=== PATIENT | female | born 1970 | race Caucasian/White ===

== ENCOUNTER 2016-08-21 16:16 | Emergency (ER) | payer MEDICAID ==
[2016-08-21] MEDS ORDERED: Sodium Chloride 0.9% 10 ML Syringe FLUSH PRN (16:22)
[2016-08-21] MEDS ORDERED: Ondansetron 4 MG/2 ML SDV IVPUSH ONE (16:23)
[2016-08-21] MEDS ORDERED: Ketorolac 30 MG/ML SDV IVPUSH ONE (16:23)
[2016-08-21] MEDS ORDERED: HYDROmorphone 1 MG/ML Syringe IVPUSH ONE (16:23)
[2016-08-21] MEDS ORDERED: Sodium Chloride 0.9% 1,000 ML IV ONE (16:23)
[2016-08-21 16:49] VITALS: BP 172/96
[2016-08-21 17:03] LABS: CHLORIDE,CL 104 mmol/L (98-107); SODIUM,NA 140 mmol/L (136-145)
[2016-08-21] MEDS ORDERED: Tamsulosin 0.4 MG Cap.ER PO ONE (18:35)
[2016-08-21] MEDS ORDERED: Take Home: Acetaminophen/HYDROcodone 325-10 MG, 5 Tab Pack PO ONE (18:36)
[2016-08-21] MEDS ORDERED: Take Home: Sulfamethoxazole/Trimethoprim 800-160 MG Tab, 2 Tab Pack PO ONE (18:37)
--- NOTE | 2016-08-22 10:36 | ER ---
Date of Service: 08/21/2016 SUBJECTIVE: Shahana presents to the emergency room with complaints of left-sided flank and abdominal pain. The patient states that she does have a history of previous kidney stone and states the discomfort is similar to what she has experienced in the past. She states that she was at rest at the onset of the symptoms. She had just gotten off her sofa to get ready for work. She had not exerted herself and had not been doing any lifting or anything that would exacerbate her back injury. Again, the patient states she has not been experiencing any fever or chills. Denies any nausea, vomiting, or diarrhea. PAST MEDICAL HISTORY: 1. History of atrial fibrillation. 2. Kidney stones. 3. Recurrent UTI. 4. Ovarian cysts. 5. Anxiety. 6. Hypertension. MEDICATIONS: Xanax and metoprolol. ALLERGIES: Codeine. REVIEW OF SYSTEMS: General: No fever or chills. HEENT: No sore throat, rhinorrhea, or congestion. Respiratory: No shortness of breath. Cardiac: Denies any substernal chest pain. No jaw, arm, neck, or back pain. GI: No nausea, vomiting, or diarrhea. No melena, hematochezia, or hematemesis. Again, she does have abdominal discomfort and flank pain. Neurologic: No fainting, blackouts, or lightheadedness. PHYSICAL EXAMINATION: General: This is a 46-year-old female patient, who is in no acute distress. Vital Signs: Blood pressure initially was 172/96, pulse rate is 97, temperature is 36.2, respiratory rate is 18, and O2 saturations 99% on room air. Skin: Warm, pink, and dry. HEENT: Head is normocephalic, atraumatic. Mouth, oral mucosa is somewhat dry. No erythema or exudate noted in the hypopharynx. Neck: Supple, without masses. There is no lymphadenopathy. Lungs: Clear to auscultation. Heart: Regular rate and rhythm. Abdomen: Soft and nontender. There is no hepatosplenomegaly noted. There are no masses noted. Extremities: Without edema. She has no CVA tenderness. Neurologic: She is alert and oriented. Answers all questions appropriately. Her speech is fluent. Her gait is within normal limits. LABORATORY DATA: CBC was obtained, was all noted to be within normal limits. Comprehensive metabolic panel was obtained and was all noted to be within normal limits with the exception of an elevated nonfasting blood glucose of 150. C- reactive protein was less than 0.2. Urinalysis revealed a specific gravity 1.020, she did have dark yellow turbid specimen, protein was 100, negative for glucose and ketones. She did have moderate occult blood, negative nitrites, and a trace of leukocyte esterase. CT scan of the patient's abdomen and pelvis was obtained, which did reveal a 4- mm stone between approximately midway between the iliac arteries and the UVJ. There was moderate hydronephrosis associated with this stone. EMERGENCY ROOM COURSE: IV access was established. She was given 30 mg of Toradol IV and 1 mg of Dilaudid IV. She was also given 4 mg of Zofran IV and a liter of normal saline. She reported significant improvement in her discomfort and was relatively pain free at the time of discharge. ASSESSMENT: A 4-mm stone in the distal ureter. PLAN: The patient will be discharged at this point. Strain her urine. She was started on Flomax 0.4 mg p.o. once daily. I also did start her on oral [place] 10/325 with instructions to take 1 to 2 tablets every 4 to 6 hours as needed for pain. Also, she should take ibuprofen 600 mg every 6 hours and drink plenty of fluids. All questions were answered. MWK: 08/21/2016 19:35:58 MODL: 08/22/2016 00:39:55 /[id number]
== END 2016-08-21 18:55 | disposition home or self-care (01) ==
LOC: VM.ED 16:16
DX: N13.2 Hydronephrosis with renal and ureteral calculous obstruction (principal); I48.91 Unspecified atrial fibrillation; I10 Essential (primary) hypertension; F41.9 Anxiety disorder, unspecified; Z88.5 Allergy status to narcotic agent
CPT/HCPCS: 36415; 74176; 80053; 81001; 85025; 86140; 96361; 96374; 96375; 99284; A9270; J1170; J1885; J2405; J7030

== ENCOUNTER 2017-08-07 18:23 | Emergency (ER) | payer MEDICAID ==
[2017-08-07 18:29] VITALS: BP 164/95
[2017-08-07] MEDS: Acetaminophen/HYDROcodone 325-10 MG Tab PO ONE (18:37)
[2017-08-07] MEDS: Ketorolac 30 MG/ML SDV IM ONE (18:37)
[2017-08-07] MEDS: Cyclobenzaprine 10 MG Tab PO ONE (18:37)
--- NOTE | 2017-08-07 19:39 | EDM.PDOC ---
ED HPI GENERAL MEDICAL PROBLEM - General Chief Complaint: Upper Extremity Injury/Pain Stated Complaint: right arm pain Time Seen by Provider: 08/07/17 18:25 Source of Information: Reports: Patient, Family History Limitations: Reports: No Limitations - History of Present Illness INITIAL COMMENTS - FREE TEXT/NARRATIVE: Patient presents to the emergency room this evening after having fallen on her right wrist. She has severe pain and limited range of motion movement with additional swelling. She did this just prior to arrival. She also reports falling on her left wrist but that does not hurt as much there is an abrasion noted to that. She has no other complaints. She did not hit her head, or have loss of consciousness. Onset: Today, Sudden Location: Reports: Upper Extremity, Right Quality: Reports: Sharp Severity: Moderate Worsens with: Reports: Movement Associated Symptoms: Reports: No Other Symptoms Right Wrist Pain Score (Numeric/FACES): 3 - Related Data Allergies Allergy/AdvReac Type Severity Reaction Status Date / Time codeine Allergy Vomiting Verified 08/07/17 18:32 Home Meds: Home Meds . 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: Reports: Polycystic Ovaries Psychiatric History: Reports: Anxiety Oncologic (Cancer) History: Reports: Cervix Social & Family History - Tobacco Use Smoking Status *Q: Current Every Day Smoker Years of Tobacco use: 30 Packs/Tins Daily: 0.5 Used Tobacco, but Quit: No Second Hand Smoke Exposure: Yes - Alcohol Use Days Per Week of Alcohol Use: 1 Number of Drinks Per Day: 4 Total Drinks Per Week: 4 - Recreational Drug Use Recreational Drug Use: No Recreational Drug Type: Reports: Marijuana/Hashish Recreational Drug Use Frequency: Socially Review of Systems - Review of Systems Review Of Systems: See Below Constitutional: Reports: No Symptoms Eyes: Reports: No Symptoms Ears: Reports: No Symptoms Nose: Reports: No Symptoms Mouth/Throat: Reports: No Symptoms Respiratory: Reports: No Symptoms Cardiovascular: Reports: No Symptoms GI/Abdominal: Reports: No Symptoms Genitourinary: Reports: No Symptoms Musculoskeletal: Reports: Arm Pain (right forearm) Skin: Reports: Wound (abrasion to left wrist) Neurological: Reports: No Symptoms Psychiatric: Reports: No Symptoms ED EXAM, GENERAL - Physical Exam Exam: See Below Exam Limited By: No Limitations General Appearance: Alert, WD/WN, Moderate Distress Eye Exam: Bilateral Eye: EOMI, Normal Inspection, PERRL Ears: Normal TMs Respiratory/Chest: No Respiratory Distress, Lungs Clear, Normal Breath Sounds, No Accessory Muscle Use, Chest Non-Tender Cardiovascular: Normal Peripheral Pulses, Regular Rate, Rhythm, No Edema, No Gallop, No JVD, No Murmur, No Rub GI/Abdominal: Normal Bowel Sounds, Soft, Non-Tender, No Organomegaly, No Distention, No Abnormal Bruit, No Mass Extremities: No Pedal Edema, Normal Capillary Refill, Arm Pain, Limited Range of Motion Neurological: Alert, Oriented, CN II-XII Intact, Normal Cognition, Normal Gait, Normal Reflexes, No Motor/Sensory Deficits Psychiatric: Normal Affect, Normal Mood Skin Exam: Wound/Incision (left wrist abrasion) Course - Vital Signs Last Recorded V/S: Last Vital Signs Temp 36.1 C 08/07/17 18:23 Pulse 74 08/07/17 18:23 Resp 18 08/07/17 18:23 BP 164/95 H 08/07/17 18:23 Pulse Ox 100 08/07/17 18:23 - Orders/Labs/Meds Orders: Active Orders 24 hr Category Date Time Status Forearm 2V Rt [CR] Stat Exams 08/07/17 18:25 Taken Wrist Comp Min 3V Rt [CR] Stat Exams 08/07/17 18:25 Ordered Meds: Medications Discontinued Medications Generic Name Dose Route Start Last Admin Trade Name Freq PRN Reason Stop Dose Admin Hydrocodone Bitart/Acetaminophen 1 tab 08/07/17 18:31 08/07/17 18:37 [place] 325-10 Mg PO 08/07/17 18:32 1 tab ONETIME ONE Administration Cyclobenzaprine HCl 10 mg 08/07/17 18:31 08/07/17 18:37 Flexeril PO 08/07/17 18:32 10 mg ONETIME ONE Administration Ketorolac Tromethamine 30 mg 08/07/17 18:25 08/07/17 18:37 Toradol IM 08/07/17 18:26 30 mg ONETIME ONE Administration - Radiology Interpretation Free Text/Narrative:: Non displaced Colles fracture on examination of images. Await radiology confirmation. Distal radius fracture confirmed on imaging. Volar forearm splint applied prior to discharge Departure - Departure Time of Disposition: 20:01 Disposition: Home, Self-Care 01 Condition: Good Clinical Impression: Colles' fracture of right radius - Discharge Information Instructions: Colles Fracture, Wrist Fracture Treated With Immobilization, Easy -to-Read Referrals: PCP,None [Primary Care Provider] - Additional Instructions: You need to schedule a follow up appointment with either [facility] or [facility]. They will do a follow up x-ray and may refer you to orthopedic for any surgical options you may have. Take the pain medications as prescribed. You can also take ibuprofen or aleve with your pain medication. Keep your arm elevated on pillows to help reduce the swelling. Stay well hydrated to avoid constipation related to the pain medication use. Keep your splint dry. Cover with a bag or leave outside the shower. Follow up at the clinic of your choice as symptoms warrant. If you have any concerns or questions you can call us at any time. - Problem List & Annotations (1) Colles' fracture of right radius SNOMED Code(s): 290238635 Code(s): S52.531A - COLLES' FRACTURE OF RIGHT RADIUS, INIT FOR CLOS FX Status: Acute Priority: Medium Current Visit: Yes Qualifiers: Encounter type: initial encounter Fracture type: closed Qualified Code(s) : S52.531A - Colles' fracture of right radius, initial encounter for closed fracture - Problem List Review Problem List Initiated/Reviewed/Updated: Yes - My Orders Last 24 Hours: My Active Orders 08/07/17 18:25 Forearm 2V Rt [CR] Stat Wrist Comp Min 3V Rt [CR] Stat - Assessment/Plan Last 24 Hours: My Active Orders 08/07/17 18:25 Forearm 2V Rt [CR] Stat Wrist Comp Min 3V Rt [CR] Stat Assessment:: right colles fracture of the radius. Non displaced. Plan: You need to schedule a follow up appointment with either [facility] or [facility]. They will do a follow up x-ray and may refer you to orthopedic for any surgical options you may have. Take the pain medications as prescribed. You can also take ibuprofen or aleve with your pain medication. Keep your arm elevated on pillows to help reduce the swelling. Stay well hydrated to avoid constipation related to the pain medication use. Keep your splint dry. Cover with a bag or leave outside the shower. Follow up at the clinic of your choice as symptoms warrant. If you have any concerns or questions you can call us at any time.
[2017-08-07] MEDS: Take Home: Acetaminophen/HYDROcodone 325-10 MG, 5 Tab Pack PO ONE (19:50)
== END 2017-08-07 19:54 | disposition home or self-care (01) ==
LOC: VM.ED 18:23
DX: S52.531A Colles' fracture of right radius, initial encounter for closed fracture (principal); I48.91 Unspecified atrial fibrillation; I10 Essential (primary) hypertension; Z88.5 Allergy status to narcotic agent; F17.210 Nicotine dependence, cigarettes, uncomplicated; W19.XXXA Unspecified fall, initial encounter; Z87.442 Personal history of urinary calculi
CPT/HCPCS: 29125; 73090; 96372; 99283; A9270; J1885

== ENCOUNTER 2017-12-24 18:41 | Emergency (ER) | payer MEDICAID ==
[2017-12-24] MEDS ORDERED: Sodium Chloride 0.9% 10 ML Syringe FLUSH PRN (18:47)
--- NOTE | 2017-12-24 18:59 | EDM.PDOC ---
<Justin Carrion W - Last Filed: 12/24/17 19:08> ED HPI GENERAL MEDICAL PROBLEM - General Chief Complaint: Chest Pain Time Seen by Provider: 12/24/17 18:45 Source of Information: Reports: Patient History Limitations: Reports: No Limitations - History of Present Illness INITIAL COMMENTS - FREE TEXT/NARRATIVE: Pt. presents to ER with complaints of chest pain, respirophasic in nature, fatigue, global weakness, and low back pain. She states that the symptoms started last and have gradually have gotten worse. Complains of generalized myalgias as well. No nausea, vomiting, or diarrhea. States that she feels like she has a hard time taking a deep breath. Pt. states that she has a history of a-fib and hypertension for which she is prescribed metoprolol. She states that she has not taken this for approx. [address] Madera in [place], [place] for PCP but does not have a local provider. She states that she hasn't had any symptoms of tachycardia in approx. 1 month. She states that when the symptoms come on, she usually stays at home. Onset Date: 12/19/17 Duration: Constant, Getting Worse Location: Reports: Chest, Back, Generalized Quality: Reports: Ache, Burning, Sharp Associated Symptoms: Reports: Malaise, Weakness. Denies: Diaphoresis, Fever/ Chills, Nausea/Vomiting - Related Data Allergies Allergy/AdvReac Type Severity Reaction Status Date / Time codeine Allergy Vomiting Verified 12/24/17 18:54 Home Meds: Home Meds . 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 Denies: Fever , Chills HEENT: Reports: No Symptoms Respiratory: Reports: Shortness of Breath, Pleuritic Chest Pain Cardiovascular: Reports: Chest Pain Endocrine: Reports: Fatigue GI/Abdominal: Reports: No Symptoms : Reports: No Symptoms Musculoskeletal: Reports: Back Pain Skin: Reports: No Symptoms Neurological: Reports: No Symptoms Psychiatric: Reports: No Symptoms Hematologic/Lymphatic: Reports: No Symptoms Immunologic: Reports: No Symptoms Course - Vital Signs Last Recorded V/S: Last Vital Signs Temp 36.5 C 12/24/17 18:45 Pulse 74 12/24/17 18:45 Resp 28 H 12/24/17 18:45 BP 173/87 H 12/24/17 18:45 Pulse Ox 100 12/24/17 18:45 - Orders/Labs/Meds Orders: Active Orders 24 hr Category Date Time Status EKG Documentation Completion [RC] STAT Care 12/24/17 18:47 Active Chest 2V [CR] Stat Exams 12/24/17 18:47 Taken CULTURE BLOOD [BC] Stat Lab 12/24/17 19:20 Received CULTURE BLOOD [BC] Stat Lab 12/24/17 19:32 Received Blood Culture x2 Reflex Set [OM.PC] Stat Oth 12/24/17 18:47 Ordered Peripheral IV Insertion Adult [OM.PC] Routine Oth 12/24/17 18:47 Ordered Labs: Laboratory Tests 12/24/17 12/24/17 12/24/17 Range/Units 19:00 19:20 19:20 WBC 7.1 (4.0-10.0) x10^3/uL RBC 4.79 (4.00-5.50) x10^6/uL Hgb 15.6 (12.0-16.0) g/dL Hct 44.5 (33.0-47.0) % MCV 92.9 (78.0-93.0) fL MCH 32.6 H (26.0-32.0) pg MCHC 35.1 (32.0-36.0) g/dL RDW Coeff of Mateus 12.4 (10.0-15.0) % Plt Count 200 (130-400) x10^3/uL Neut % (Auto) 53.3 (50.0-80.0) % Lymph % (Auto) 37.9 (25.0-50.0) % [place] % (Auto) 7.6 (2.0-11.0) % Eos % (Auto) 0.6 (0.0-4.0) % Baso % (Auto) 0.6 (0.2-1.2) % PT 9.4 L (9.6-11.4) SEC INR 0.9 L (2.0-3.5) D-Dimer, Quantitative < 0.19 (<=0.58) mg/LFEU Sodium (136-145) mmol/L Potassium (3.5-5.1) mmol/L Chloride (98-107) mmol/L Carbon Dioxide (21-32) mmol/L Anion Gap (10-20) mmol/L BUN (7-18) mg/dL Creatinine (0.55-1.02) mg/dL Est Cr Clr Drug Dosing mL/min Estimated GFR (MDRD) Glucose (74-106) mg/dL Lactic Acid (0.4-2.0) mmol/L Calcium (8.5-10.1) mg/dL Corrected Calcium (8.5-10.1) mg/dL Phosphorus (2.6-4.7) mg/dL Magnesium (1.8-2.4) mg/dL Total Bilirubin (0.2-1.0) mg/dL AST (15-37) U/L ALT (14-59) U/L Alkaline Phosphatase (46-116) U/L POC Troponin I (0.00-0.08) ng/mL C-Reactive Protein (<=0.9) mg/dL NT-Pro-B Natriuret Pep (<=125) pg/mL Total Protein (6.4-8.2) g/dL Albumin (3.4-5.0) g/dL Globulin Albumin/Globulin Ratio Urine Color Yellow (YELLOW) Urine Appearance Turbid H (CLEAR) Urine pH 8.0 (5.0-8.0) Ur Specific [place] 1.015 Urine Protein Negative (NEGATIVE) mg/dL Urine Glucose (UA) Negative (NEGATIVE) mg/dL Urine Ketones Negative (NEGATIVE) mg/dL Urine Occult Blood Negative (NEGATIVE) Urine Nitrite Negative (NEGATIVE) Urine Bilirubin Negative (NEGATIVE) Urine Urobilinogen 0.2 (0.2) EU/dL Ur Leukocyte Esterase Trace H (NEGATIVE) Urine RBC 0-5 (NOT SEEN) /HPF Urine WBC 0-5 (NOT SEEN) /HPF Ur Squamous Epith Cells Few H (NEGATIVE) /HPF Amorphous Sediment Many Urine Bacteria Few H (NEGATIVE) /HPF Urine Mucus Few H (NEGATIVE) /LPF 08/14/18 08/14/18 08/14/18 Range/Units 19:20 19:20 19:42 WBC (4.0-10.0) x10^3/uL RBC (4.00-5.50) x10^6/uL Hgb (12.0-16.0) g/dL Hct (33.0-47.0) % MCV (78.0-93.0) fL MCH (26.0-32.0) pg MCHC (32.0-36.0) g/dL RDW Coeff of [place] (10.0-15.0) % Plt Count (130-400) x10^3/uL Neut % (Auto) (50.0-80.0) % Lymph % (Auto) (25.0-50.0) % [place] % (Auto) (2.0-11.0) % Eos % (Auto) (0.0-4.0) % Baso % (Auto) (0.2-1.2) % PT (9.6-11.4) SEC INR (2.0-3.5) D-Dimer, Quantitative (<=0.58) mg/LFEU Sodium 139 (136-145) mmol/L Potassium 3.6 (3.5-5.1) mmol/L Chloride 101 (98-107) mmol/L Carbon Dioxide 29 (21-32) mmol/L Anion Gap 12.6 (10-20) mmol/L BUN 19 H (7-18) mg/dL Creatinine 1.1 H (0.55-1.02) mg/dL Est Cr Clr Drug Dosing 68.37 mL/min Estimated GFR (MDRD) 53 Glucose 75 (74-106) mg/dL Lactic Acid 1.7 (0.4-2.0) mmol/L Calcium 10.0 (8.5-10.1) mg/dL Corrected Calcium 9.76 (8.5-10.1) mg/dL Phosphorus 3.4 (2.6-4.7) mg/dL Magnesium 2.3 (1.8-2.4) mg/dL Total Bilirubin 0.3 (0.2-1.0) mg/dL AST 21 (15-37) U/L ALT 44 (14-59) U/L Alkaline Phosphatase 100 (46-116) U/L POC Troponin I 0.00 (0.00-0.08) ng/mL C-Reactive Protein < 0.2 (<=0.9) mg/dL NT-Pro-B Natriuret Pep 72 (<=125) pg/mL Total Protein 7.8 (6.4-8.2) g/dL Albumin 4.3 (3.4-5.0) g/dL Globulin 3.5 Albumin/Globulin Ratio 1.23 Urine Color (YELLOW) Urine Appearance (CLEAR) Urine pH (5.0-8.0) Ur Specific [place] Urine Protein (NEGATIVE) mg/dL Urine Glucose (UA) (NEGATIVE) mg/dL Urine Ketones (NEGATIVE) mg/dL Urine Occult Blood (NEGATIVE) Urine Nitrite (NEGATIVE) Urine Bilirubin (NEGATIVE) Urine Urobilinogen (0.2) EU/dL Ur Leukocyte Esterase (NEGATIVE) Urine RBC (NOT SEEN) /HPF Urine WBC (NOT SEEN) /HPF Ur Squamous Epith Cells (NEGATIVE) /HPF Amorphous Sediment Urine Bacteria (NEGATIVE) /HPF Urine Mucus (NEGATIVE) /LPF Meds: Medications Discontinued Medications Generic Name Dose Route Start Last Admin Trade Name Freq PRN Reason Stop Dose Admin Aspirin 324 mg 12/24/17 19:06 12/24/17 19:30 Aspirin PO 12/24/17 19:07 324 mg ONETIME ONE Administration Sodium Chloride 1,000 mls @ 999 mls/hr 12/24/17 19:30 12/24/17 19:25 Normal Saline IV 999 mls/hr ASDIRECTED NOREEN Administration Sodium Chloride 1,000 mls @ 999 mls/hr 12/24/17 20:30 12/24/17 20:30 Normal Saline IV 999 mls/hr ASDIRECTED NOREEN Administration Methylprednisolone Sodium Succinate 125 mg 12/24/17 20:29 12/24/17 20:37 Solu-Medrol IVPUSH 12/24/17 20:30 125 mg ONETIME ONE Administration Sodium Chloride 10 ml 12/24/17 18:47 Saline Flush FLUSH ASDIRECTED PRN Keep Vein Open Trimethoprim/Sulfamethoxazole 1 tab 12/24/17 20:11 12/24/17 20:18 Septra Ds PO 12/24/17 20:12 1 tab ONETIME ONE Administration Departure - Departure Disposition: Home, Self-Care 01 Clinical Impression: Pyelonephritis - Discharge Information Instructions: Pyelonephritis, Adult, [id number], Chronic Obstructive Pulmonary Disease, [id number] Referrals: Stacy Kimble MD [Primary Care Provider] - Forms: ED Department Discharge Additional Instructions: Stay well hydrated. You also should stop smoking. Take the bactrim twice daily for 14 days. Do not stop taking them early if you feel better. Complete the course. Only stop if you feel your throat is tightening and it is hard to breath, you begin having a rash, or if you start having severe headaches, muscles aches. Some abdominal discomfort is expected with antibiotics, as is diarrhea. Make sure to either buy some probiotics or eat yogurt for the next month to keep your regular abdominal bacteria healthy. Discuss with Dr. Kimble your shortness of breath. Due to your history of smoking, you may have COPD. To determine this you would need to have a test called a pulmonary function test(PFT). This determines how well your lungs are working. You have mucus, bacteria, blood and leukocytes in your urinalysis today. I am diagnosing you with pyelonephritis which is a kidney infection and inflammation of the lining of your kidneys. Only bathe and wash the vaginal area with neutral soaps and avoid soaps with strong fragrances, douching, always wipe front to back. If you have any questions or additional concerns, please call the hospital. <Ramon Mata - Last Filed: 12/24/17 22:28> ED HPI GENERAL MEDICAL PROBLEM Middle Chest Pain Score (Numeric/FACES): 8 ED EXAM, GENERAL - Physical Exam Exam: See Below Exam Limited By: No Limitations General Appearance: Alert, WD/WN, No Apparent Distress Eye Exam: Bilateral Eye: EOMI, PERRL Ears: Normal TMs Nose: Normal Inspection, Normal Mucosa, No Blood Throat/Mouth: Normal Inspection, Normal Lips, Normal Teeth, Normal Gums, Normal Oropharynx, Normal Voice, No Airway Compromise Head: Atraumatic, Normocephalic Neck: Normal Inspection, Supple, Non-Tender, Full Range of Motion Respiratory/Chest: No Respiratory Distress, Lungs Clear, Normal Breath Sounds, No Accessory Muscle Use, Chest Non-Tender Cardiovascular: Normal Peripheral Pulses, Regular Rate, Rhythm, No Edema, No Gallop, No JVD, No Murmur, No Rub Peripheral Pulses: 2+: Radial (L), Radial (R), Posterior Tibial (L), Posterior Tibial (R), Dorsalis Pedis (L), Dorsalis Pedis (R) GI/Abdominal: Normal Bowel Sounds, Soft, Non-Tender, No Organomegaly, No Distention, No Abnormal Bruit, No Mass Back Exam: CVA Tenderness (L), CVA Tenderness (R) Extremities: Normal Inspection, Normal Range of Motion, Non-Tender, Normal Capillary Refill, No Pedal Edema Neurological: Alert, Oriented, CN II-XII Intact, Normal Cognition, Normal Gait, Normal Reflexes, No Motor/Sensory Deficits Psychiatric: Normal Affect, Normal Mood Skin Exam: Warm, Dry, Intact, Normal Color, No Rash Lymphatic: No Adenopathy Departure - Departure Time of Disposition: 21:25 Condition: Good - Discharge Information *PRESCRIPTION DRUG MONITORING PROGRAM REVIEWED*: Not Applicable *COPY OF PRESCRIPTION DRUG MONITORING REPORT IN PATIENT BATSHEVA: Not Applicable - Problem List & Annotations (1) Pyelonephritis SNOMED Code(s): 50552103 Code(s): N12 - TUBULO-INTERSTITIAL NEPHRITIS, NOT SPCF ACUTE OR CHRONIC Status: Acute Priority: Medium - Problem List Review Problem List Initiated/Reviewed/Updated: Yes - Assessment/Plan Assessment:: pyelonephritis Plan: Stay well hydrated. You also should stop smoking. Take the bactrim twice daily for 14 days. Do not stop taking them early if you feel better. Complete the course. Only stop if you feel your throat is tightening and it is hard to breath, you begin having a rash, or if you start having severe headaches, muscles aches. Some abdominal discomfort is expected with antibiotics, as is diarrhea. Make sure to either buy some probiotics or eat yogurt for the next month to keep your regular abdominal bacteria healthy. Discuss with Dr. Kimble your shortness of breath. Due to your history of smoking, you may have COPD. To determine this you would need to have a test called a pulmonary function test(PFT). This determines how well your lungs are working. You have mucus, bacteria, blood and leukocytes in your urinalysis today. I am diagnosing you with pyelonephritis which is a kidney infection and inflammation of the lining of your kidneys. Only bathe and wash the vaginal area with neutral soaps and avoid soaps with strong fragrances, douching, always wipe front to back. If you have any questions or additional concerns, please call the hospital.
[2017-12-24] MEDS ORDERED: Aspirin 81 MG Tab.Chew PO ONE (19:06)
[2017-12-24 19:10] VITALS: BP 173/87
[2017-12-24] MEDS ORDERED: Sodium Chloride 0.9% 1,000 ML IV SCH ×2 (19:30→20:30)
[2017-12-24 20:07] LABS: CHLORIDE,CL 101 mmol/L (98-107); SODIUM,NA 139 mmol/L (136-145)
[2017-12-24 20:09] LABS: ANION GAP 12.6 mmol/L (10-20)
[2017-12-24] MEDS ORDERED: Sulfamethoxazole/Trimethoprim 800-160 MG Tab PO ONE (20:11)
[2017-12-24] MEDS ORDERED: methylPREDNISolone Sodium Succinate 125 MG/2 ML SDV IVPUSH ONE (20:29)
== END 2017-12-24 21:25 | disposition home or self-care (01) ==
LOC: VM.ED 18:41
DX: N12 Tubulo-interstitial nephritis, not specified as acute or chronic (principal); I10 Essential (primary) hypertension; F41.9 Anxiety disorder, unspecified; Z88.5 Allergy status to narcotic agent
CPT/HCPCS: 36415; 71046; 80053; 81001; 83605; 83735; 83880; 84100; 84484; 85025; 85379; 85610; 86140; 87040; 87804; 93005; 96361; 96374; 99285; A9270; J2930; J7030

== ENCOUNTER 2017-12-26 11:10 | Emergency (ER) | payer MEDICAID ==
[2017-12-26 11:17] VITALS: BP 163/94
--- NOTE | 2017-12-26 11:27 | EDM.PDOC ---
ED HPI GENERAL MEDICAL PROBLEM - General Chief Complaint: Allergic Reaction Stated Complaint: Facial swelling Time Seen by Provider: 12/26/17 11:11 Source of Information: Reports: Patient, Old Records, RN, RN Notes Reviewed History Limitations: Reports: No Limitations - History of Present Illness INITIAL COMMENTS - FREE TEXT/NARRATIVE: Patient presents to the ED at [facility] complaining of facial swelling after she started taking Bactrim DS for Pyelo she was diagnosed with 2 days ago. No breathing or airway problems. No skin rash or hives. Denies any chest pain. No throat swelling. No N/V/D. Onset: Today - Related Data Allergies Allergy/AdvReac Type Severity Reaction Status Date / Time codeine Allergy Vomiting Verified 12/26/17 11:19 Home Meds: Home Meds Ciprofloxacin HCl [Cipro] 500 mg PO BID 5 Days #10 tablet 12/26/17 [Rx] methylPREDNISolone [Medrol] 4 mg PO ASDIRECTED #1 dosepk 12/26/17 [Rx] Past Medical History Cardiovascular History: Reports: Afib, Hypertension Genitourinary History: Reports: Renal Calculus, UTI, Recurrent ADOBE BALL MIXER History: Reports: Polycystic Ovaries Other ADOBE BALL MIXER History: cervical leep. cervical freeze, cervical conization Psychiatric History: Reports: Anxiety Oncologic (Cancer) History: Reports: Cervix - Past Surgical History GI Surgical History: Reports: Hernia Repair/Other Musculoskeletal Surgical History: Reports: Other (See Below) Other Musculoskeletal Surgeries/Procedures:: elbow surgery ED ROS ALLERGIC REACTION - Review of Systems Review Of Systems: See Below Constitutional: Denies: Fever, Chills, Weakness HEENT: Reports: No Symptoms, Other (bilateral facial swelling just under both eyes; skin slightly erythematous consistent with drug reaction). Denies: Throat Pain, Throat Swelling Respiratory: Denies: Shortness of Breath, Wheezing, Cough Cardiovascular: Denies: Chest Pain, Palpitations GI/Abdominal: Denies: Abdominal Pain, Nausea, Vomiting Skin: Reports: No Symptoms, Other (facial swelling) Neurological: Reports: No Symptoms. Denies: Dizziness, Headache, Trouble Speaking ED EXAM GENERAL NO PERIP PULSE - Physical Exam Exam: See Below Exam Limited By: No Limitations General Appearance: Alert, No Apparent Distress Eye Exam: Left Eye: Normal Inspection Throat/Mouth: Normal Inspection, Normal Oropharynx, No Airway Compromise Neck: Supple Respiratory/Chest: No Respiratory Distress, Lungs Clear, Normal Breath Sounds Cardiovascular: Normal Peripheral Pulses, Regular Rate, Rhythm GI/Abdominal: Normal Bowel Sounds, Soft, Non-Tender Neurological: Alert, Oriented Skin Exam: Warm, Dry, Intact, Normal Color, Other (swelling below both eyes with slight erythema; consistent with drug reaction) Course - Vital Signs Last Recorded V/S: Last Vital Signs Temp 36.6 C 12/26/17 11:16 Pulse 90 12/26/17 11:16 Resp 16 12/26/17 11:16 BP 163/94 H 12/26/17 11:16 Pulse Ox 98 12/26/17 11:16 Departure - Departure Time of Disposition: 11:26 Disposition: Home, Self-Care 01 Condition: Good Clinical Impression: Drug reaction Qualifiers: Encounter type: initial encounter Qualified Code(s): T50.905A - Adverse effect of unspecified drugs, medicaments and biological substances, initial encounter - Discharge Information *PRESCRIPTION DRUG MONITORING PROGRAM REVIEWED*: Not Applicable *COPY OF PRESCRIPTION DRUG MONITORING REPORT IN PATIENT BATSHEVA: Not Applicable Prescriptions: Ciprofloxacin HCl [Cipro] 500 mg PO BID 5 Days #10 tablet methylPREDNISolone [Medrol] 4 mg PO ASDIRECTED #1 dosepk Instructions: Drug Allergy Additional Instructions: 1. Stop taking Bactrim 2. Start Cipro and steroids for the full coarse 3. Stay well hydrated 4. See your Primary as symptoms warrant - Problem List Review Problem List Initiated/Reviewed/Updated: Yes
== END 2017-12-26 11:39 | disposition home or self-care (01) ==
LOC: VM.ED 11:10
DX: R22.0 Localized swelling, mass and lump, head (principal); T37.0X5A Adverse effect of sulfonamides, initial encounter; I10 Essential (primary) hypertension; I48.91 Unspecified atrial fibrillation; Z88.5 Allergy status to narcotic agent; Z79.899 Other long term (current) drug therapy
CPT/HCPCS: 99282